=== PATIENT | male | born 1960 | race Caucasian/White ===

== ENCOUNTER 2017-06-04 19:09 | Emergency (ER) | payer BC ==
[~2017-06-04] VITALS: Ht 172.7 cm; Wt 86.0 kg
[2017-06-04 19:17] VITALS: TEMP 36.9; Ht 172.7 cm; Wt 86.0 kg
[2017-06-04] MEDS ORDERED: SODIUM CHLORIDE 0.9% 1000ML 1,000 ML IV SCH (19:44)
[2017-06-04] MEDS ORDERED: MULTI-VITAMIN INFUSION INJ 10 ML, THIAMINE HCL INJ 100 MG, FoLIC ACID INJ 1 MG in SODIU... IV ONE (20:00)
[2017-06-04 20:02] LABS: PARTIAL THROMBOPLASTIN RATIO 1.1; PROTHROMBIN TIME (PATIENT) 10.6 SECONDS (9.0-12.0)
[2017-06-04 20:06] LABS: BASO % 0.6 %; BASO ABS # 0.04 K/uL (0-0.2); COMPLETE YES; EOS % 2.6 %; IG% 1.2 %; LYMPH % 31.8 %; LYMPH ABS # 2.29 K/uL (1.2-3.4); MEAN CELL VOLUME 90.2 fL (80-100); MEAN CORPUSCULAR HEMOGLOBIN 31.5 pg (25-34); MEAN CORPUSCULAR HGB CONC 34.9 g/dl (32-36); MONO % 7.2 %; NEUT % 56.6 %; PLATELET COUNT 375 K/uL (130-400); RED BLOOD COUNT 4.99 M/uL (4.7-6.1); WHITE BLOOD COUNT 7.21 K/uL (4.8-10.8)
--- NOTE | 2017-06-04 20:06 | DIAGNOSTIC IMAGING REPORT ---
SINGLE VIEW CHEST CLINICAL HISTORY: Strokelike symptoms. FINDINGS: An AP, portable, upright chest radiograph is obtained. No prior studies are available for comparison at the time of dictation. The examination is degraded by portable technique, apical lordotic positioning, and patient rotation. The cardiomediastinal silhouette is unremarkable. Emphysematous change is suspected. There is biapical scarring, asymmetrically greater on the right than the left. Additional foci of nodularity are present at the right lung base. No airspace consolidation, large pleural effusion, or pneumothorax is seen. The skeletal structures appear osteopenic. The bony thorax is grossly intact. IMPRESSION: 1. There is no airspace consolidation, large pleural effusion, or pneumothorax. 2. There is asymmetric right apical scarring as compared to the left. Additional foci of nodularity are present at the right lung base. Although this may simple represent scarring and calcified granulomas, follow-up with a chest CT is recommended to exclude underlying pulmonary neoplasm. Electronically signed by: Connor Lo M.D. 06/04/2017 8:05 PM Dictated Date/Time: 06/04/2017 8:03 PM
[2017-06-04 20:09] LABS: ISTAT CREATININE 1.3 mg/dl (0.6-1.3); ISTAT IONIZED CALCIUM 1.12 mmol/l (1.12-1.32)
[2017-06-04 20:17] LABS: BLOOD UREA NITROGEN 8 mg/dl (7-18); BUN/CREATININE RATIO 8.9 (10-20); CALCIUM 8.5 mg/dl (8.5-10.1); CARBON DIOXIDE 23 mmol/L (21-32); CHLORIDE 105 mmol/L (98-107); CREATININE 0.92 mg/dl (0.60-1.40); GLUCOSE 94 mg/dl (70-99); POTASSIUM 3.8 mmol/L (3.5-5.1); SODIUM 138 mmol/L (136-145)
[2017-06-04 20:18] VITALS: O2SAT 92
[2017-06-04 20:22] LABS: CKMB/CK RATIO 1.1 (0-3.0)
--- NOTE | 2017-06-04 20:27 | DIAGNOSTIC IMAGING REPORT ---
CT SCAN OF THE BRAIN WITHOUT IV CONTRAST CLINICAL HISTORY: Strokelike symptoms. COMPARISON STUDY: No priors. TECHNIQUE: Unenhanced axial CT scan of the brain is performed from the vertex to the skull base. A dose lowering technique was utilized adhering to the principles of ALARA. CT DOSE: 537.48 mGy.cm FINDINGS: Brain parenchyma: There is minimal periventricular microangiopathic disease. There is no hemorrhage, mass effect, or evidence of acute territorial ischemia by CT criteria. Luna-white matter is preserved. No extra-axial fluid collection is seen. Ventricles, sulci, cisterns: Normal in configuration. Intracranial vasculature: There is minimal atherosclerotic calcification of the cavernous carotid arteries. Calvarium: Unremarkable. Sinuses and mastoids: The visualized paranasal sinuses are clear. The mastoid air cells are well pneumatized. Orbits: The bony orbits are grossly intact. IMPRESSION: There is no hemorrhage, mass effect, or evidence of acute territorial ischemia by CT criteria. Electronically signed by: Connor Lo M.D. 06/04/2017 8:26 PM Dictated Date/Time: 06/04/2017 8:23 PM
[2017-06-04] MEDS ORDERED: OPTIRAY 320 IV PRN (22:15)
--- NOTE | 2017-06-04 22:59 | DIAGNOSTIC IMAGING REPORT ---
CT ANGIOGRAM OF THE ABDOMEN AND PELVIS CLINICAL HISTORY: Atypical chest pain. Back pain. COMPARISON STUDY: No priors. TECHNIQUE: Following the IV administration of 94 cc of Optiray 320, CT angiogram of the abdomen and pelvis was performed from the lung bases the proximal femora. Images are reviewed in the axial, sagittal, and coronal planes. 3-D MIPS images are created and assessed. IV contrast was administered without complication. A dose lowering technique was utilized adhering to the principles of ALARA. CT DOSE: 606.04 mGy.cm FINDINGS: Lower chest: The heart is normal in size and without pericardial effusion. Emphysematous change is suggested. A 9 mm nodule in the right lower lobe as seen on image #7 appears hyperdense and is likely calcified. Additional calcified granulomas and noncalcified nodules are seen at the right lung base. Additional calcified granulomas are observed. No airspace consolidation or pleural effusion is identified. There is a small hiatal hernia. Liver: The contrast-enhanced liver is normal in size, contour, and attenuation. There is no intrahepatic or ductal dilatation. The main portal vein appears patent. Gallbladder: Unremarkable. Spleen: Normal in size and attenuation noting heterogeneous arterial phase enhancement. Pancreas: Unremarkable. Adrenal glands: Unremarkable. Kidneys: The contrast enhanced kidneys are normal in size and without hydronephrosis. The kidneys enhance symmetrically. Abdominal aorta and iliac arteries: There is moderate atherosclerotic calcification of the abdominal aorta which is normal in caliber. The abdominal aorta and iliac arteries are widely patent. No dissection is seen. Major branches of the abdominal aorta: The celiac trunk, superior mesenteric, and inferior mesenteric arteries are widely patent. Hepatic arterial anatomy is conventional. The splenic artery is patent. Single bilateral renal arteries are widely patent. Bowel: The small bowel and colon are normal in course and caliber. There is mild colonic diverticulosis without CT evidence of acute diverticulitis. The appendix is well-visualized and normal. Peritoneum: There is no intraperitoneal free air or abdominal ascites. There is a small fat-containing umbilical hernia. Lymphadenopathy: None. Pelvic viscera: The bladder is markedly distended otherwise normal in appearance. The prostate and seminal vesicles are normal as visualized. Skeletal structures: No destructive bony lesions are seen. IMPRESSION: 1. Unremarkable CT angiogram of the abdominal aorta. No aneurysm or dissection is seen. 2. Unremarkable CT angiogram of the major branches of the abdominal aorta. 3. No acute infectious or inflammatory findings are seen in the abdomen or pelvis. 4. The bladder is markedly distended but otherwise normal in appearance. 5. Calcified granulomas and noncalcified pulmonary nodules are seen at the right lung base. Follow-up with a nonemergent chest CT is recommended for further interrogation. 6. Mild colonic diverticulosis without CT evidence of acute diverticulitis. 7. Additional findings as above. Electronically signed by: Connor Lo M.D. 06/04/2017 10:58 PM Dictated Date/Time: 06/04/2017 10:50 PM
--- NOTE | 2017-06-04 23:18 | Progress Note ---
Internal Med Progress Note Date of Service: Jun 04, 2017. Provider Documentation: I was requested by Dr. Ridley to evaluate patient for potential admission. Patient expressed his desire to leave hospital AGAINST MEDICAL ADVICE. Patient counseled about potential risks of stroke, disability, or which may stem from his decision to forego admission. Patient understands above risks. Patient advised to return to the ER for recurrent symptoms and notify his PCP from [place] of events upon return. AMA form signed by patient. Vital Signs: Date Time Temp Pulse Resp B/P (MAP) Pulse Ox O2 Delivery O2 Flow Rate FiO2 06/04/17 23:30 87 18 155/108 95 06/04/17 21:15 81 18 132/92 90 Room Air 06/04/17 20:18 92 Room Air 06/04/17 20:18 85 18 150/95 92 Room Air 06/04/17 19:17 36.9 91 18 154/97 92 Room Air Lab Results: Results Past 24 Hours Test 06/04/17 19:15 06/04/17 19:59 06/04/17 20:01 Range/Units White Blood Count 7.21 4.8-10.8 K/uL Red Blood Count 4.99 4.7-6.1 M/uL Hemoglobin 15.7 14.0-18.0 g/dL Hematocrit 45.0 42-52 % Mean Corpuscular Volume 90.2 80-100 fL Mean Corpuscular Hemoglobin 31.5 25-34 pg Mean Corpuscular Hemoglobin Concent 34.9 32-36 g/dl Platelet Count 375 130-400 K/uL Mean Platelet Volume 9.0 7.4-10.4 fL Neutrophils (%) (Auto) 56.6 % Lymphocytes (%) (Auto) 31.8 % Monocytes (%) (Auto) 7.2 % Eosinophils (%) (Auto) 2.6 % Basophils (%) (Auto) 0.6 % Neutrophils # (Auto) 4.08 1.4-6.5 K/uL Lymphocytes # (Auto) 2.29 1.2-3.4 K/uL Monocytes # (Auto) 0.52 0.11-0.59 K/uL Eosinophils # (Auto) 0.19 0-0.5 K/uL Basophils # (Auto) 0.04 0-0.2 K/uL RDW Standard Deviation 40.2 36.4-46.3 fL RDW Coefficient of Variation 12.1 11.5-14.5 % Immature Granulocyte % (Auto) 1.2 % Immature Granulocyte # (Auto) 0.09 0.00-0.02 K/uL Prothrombin Time 10.6 9.0-12.0 SECONDS Prothromb Time International Ratio 1.0 0.9-1.1 Activated Partial Thromboplast Time 28.0 21.0-31.0 SECONDS Partial Thromboplastin Ratio 1.1 Sodium Level 138 136-145 mmol/L Potassium Level 3.8 3.5-5.1 mmol/L Chloride Level 105 98-107 mmol/L Carbon Dioxide Level 23 21-32 mmol/L Anion Gap 10.0 18.0 16-25 mmol/L Blood Urea Nitrogen 8 7-18 mg/dl Creatinine 0.92 0.60-1.40 mg/dl Est Creatinine Clear Calc Drug Dose 95.7 ml/min Estimated GFR () 107.4 Estimated GFR (Non- 92.6 BUN/Creatinine Ratio 8.9 10-20 Random Glucose 94 70-99 mg/dl Calcium Level 8.5 8.5-10.1 mg/dl Magnesium Level 2.2 1.8-2.4 mg/dl Total Creatine Kinase 176 39-308 U/L Creatine Kinase MB 1.9 0.5-3.6 ng/ml Creatine Kinase MB Ratio 1.1 0-3.0 Troponin I < 0.015 0-0.045 ng/ml Thyroid Stimulating Hormone (TSH) 0.655 0.300-4.500 uIu/ml Ethyl Alcohol mg/dL 292.5 0-3 mg/dl Bedside Hemoglobin 16.0 14.0-18.0 g/dl Bedside Hematocrit 47 42-52 % Bedside Sodium 138 135-144 mEq/L Bedside Potassium 3.9 3.3-5.0 mEq/L Bedside Chloride 103 101-112 mEq/L Bedside Total CO2 22 24-31 mEq/l Bedside Blood Urea Nitrogen 6 7-18 mg/dl Bedside Creatinine 1.3 0.6-1.3 mg/dl Bedside Glucose (other) 102 70-99 mg/dl Bedside Ionized Calcium (Suzette) 1.12 1.12-1.32 mmol/l Bedside Prothrombin Time INR 1.0 0.9-1.1 Bedside Glucose 117 70-99 mg/dl
[2017-06-04 23:21] LABS: MAGNESIUM 2.2 mg/dl (1.8-2.4); THYROID STIMULATING HORMONE 0.655 uIu/ml (0.300-4.500)
[2017-06-04 23:30] VITALS: BP 155/108; PULSE 87; O2SAT 95
[2017-06-05] MEDS ORDERED: IV FLUIDS COMPLETED PRN (02:15)
--- NOTE | 2017-06-05 22:39 | EMERGENCY ROOM VISIT NOTE ---
History Report prepared by Nilda: Nam Short Under the Supervision of: Dr. Addy Ridley M.D. First contact with patient: 19:22 Chief Complaint: OTHER COMPLAINT Stated Complaint: CHEST PAIN History of Present Illness The patient is a 57 year old male who presents to the Emergency Room by EMS with complaints of an episode of bilateral leg weakness occurring one hour ago. The patient estimates that the episode lasted for about 30 minutes. He states that he was walking up to the [employer] game when his legs "quit working". He admits that he has been drinking alcohol all day. The patient states that he normally drinks six beers per day. He states that he had around 12 beers today. Per friend, the patient began leaning to the side and walking in an unbalanced way. He states that the patient would veer off to the side, usually the left more than the right. He notes that the patient fell into bushes twice. The patient's friend states that after the patient was set down, he was unable to stand up with his own strength. The patient is unsure if his legs are still weak. He notes that he had a prostate biopsy 10 days ago. He denies any arm weakness, unilateral weakness, abdominal pain, numbness or chest pain. The patient states that he had some blurred vision yesterday. He states that he felt low back pain during the episode, but currently does not have any. His back pain was not worse on a particular side and did not radiate down his legs. He had no fecal or urinary incontinence. Source of History: patient, friend Onset: 1819 Position: leg (bilateral) Symptom Intensity: 30 minutes long Quality: other (weakness) Timing: other (episode) Associated Symptoms: + back pain (low during episode), No chest pain, No abdominal pain Note: The patient notes that he had blurred vision yesterday. He denies any arm weakness. Review of Systems See HPI for pertinent positives & negatives. A total of 10 systems reviewed and were otherwise negative. Past Medical & Surgical Medical Problems: (1) No Known Active Medical Problems (2) Transient limb paralysis Surgical Problems: (1) H/O prostate biopsy Family History No pertinent family history stated. Social History Smoking Status: Former Smoker Alcohol Use: heavy Current/Historical Medications No Active Prescriptions or Reported Meds Allergies Coded Allergies: Aspirin (Unverified Allergy, Unknown, ., 06/04/17) Penicillins (Unverified Allergy, Unknown, ., 06/04/17) Physical Exam Vital Signs Date Time Temp Pulse Resp B/P (MAP) Pulse Ox O2 Delivery O2 Flow Rate FiO2 06/04/17 23:30 87 18 155/108 95 06/04/17 21:15 81 18 132/92 90 Room Air 06/04/17 20:18 92 Room Air 06/04/17 20:18 85 18 150/95 92 Room Air 06/04/17 19:17 36.9 91 18 154/97 92 Room Air Physical Exam Constitutional: Vital signs reviewed. Eyes: Pupils are equal round reactive to light. Conjunctiva are noninjected. ENT: Pharynx is clear without erythema or exudate. Mucous membranes are moist. Neck supple without meningeal signs. Respiratory: Clear to auscultation bilaterally. Breath sounds are equal bilaterally. Cardiovascular: Regular rate and rhythm. No rubs or gallops. GI: Soft, nondistended and nontender. Bowel sounds are present. No pulsatile masses. Musculoskeletal: No peripheral edema. No lower extremity tenderness. Integumentary: No cyanosis. Neurological: The patient is awake and alert. Cranial nerves II-XII are intact. Motor is 5 out of 5 all extremities. Sensation is intact to light touch all extremities. Normal speech. No pronator drift. No limb ataxia. Unstable gait, listing toward the right side. DTRs are 2+ in the knees and ankles bilaterally. No saddle anesthesia. Psychiatric: Normal affect. Medical Decision & Procedures ER Provider Diagnostic Interpretation: Radiology results as stated below per my review and the radiologist's interpretation: CT SCAN OF THE BRAIN WITHOUT IV CONTRAST FINDINGS: Brain parenchyma: There is minimal periventricular microangiopathic disease. There is no hemorrhage, mass effect, or evidence of acute territorial ischemia by CT criteria. Luna-white matter is preserved. No extra-axial fluid collection is seen. Ventricles, sulci, cisterns: Normal in configuration. Intracranial vasculature: There is minimal atherosclerotic calcification of the cavernous carotid arteries. Calvarium: Unremarkable. Sinuses and mastoids: The visualized paranasal sinuses are clear. The mastoid air cells are well pneumatized. Orbits: The bony orbits are grossly intact. IMPRESSION: There is no hemorrhage, mass effect, or evidence of acute territorial ischemia by CT criteria. Electronically signed by: Connor Lo M.D. 06/04/2017 8:26 PM SINGLE VIEW CHEST FINDINGS: An AP, portable, upright chest radiograph is obtained. No prior studies are available for comparison at the time of dictation. The examination is degraded by portable technique, apical lordotic positioning, and patient rotation. The cardiomediastinal silhouette is unremarkable. Emphysematous change is suspected. There is biapical scarring, asymmetrically greater on the right than the left. Additional foci of nodularity are present at the right lung base. No airspace consolidation, large pleural effusion, or pneumothorax is seen. The skeletal structures appear osteopenic. The bony thorax is grossly intact. IMPRESSION: 1. There is no airspace consolidation, large pleural effusion, or pneumothorax. 2. There is asymmetric right apical scarring as compared to the left. Additional foci of nodularity are present at the right lung base. Although this may simple represent scarring and calcified granulomas, follow-up with a chest CT is recommended to exclude underlying pulmonary neoplasm. Electronically signed by: Connor Lo M.D. 06/04/2017 8:05 PM Laboratory Results 06/04/17 19:15 Red Blood Count 4.99, Mean Corpuscular Volume 90.2, Mean Corpuscular Hemoglobin 31.5, Mean Corpuscular Hemoglobin Concent 34.9, Mean Platelet Volume 9.0, Neutrophils (%) (Auto) 56.6, Lymphocytes (%) (Auto) 31.8, Monocytes (%) (Auto) 7.2, Eosinophils (%) (Auto) 2.6, Basophils (%) (Auto) 0.6, Neutrophils # (Auto) 4.08, Lymphocytes # (Auto) 2.29, Monocytes # (Auto) 0.52, Eosinophils # (Auto) 0.19, Basophils # (Auto) 0.04 06/04/17 19:15 Test 06/04/17 19:15 06/04/17 19:59 06/04/17 20:01 White Blood Count 7.21 K/uL (4.8-10.8) Red Blood Count 4.99 M/uL (4.7-6.1) Hemoglobin 15.7 g/dL (14.0-18.0) Hematocrit 45.0 % (42-52) Mean Corpuscular Volume 90.2 fL (80-100) Mean Corpuscular Hemoglobin 31.5 pg (25-34) Mean Corpuscular Hemoglobin Concent 34.9 g/dl (32-36) Platelet Count 375 K/uL (130-400) Mean Platelet Volume 9.0 fL (7.4-10.4) Neutrophils (%) (Auto) 56.6 % Lymphocytes (%) (Auto) 31.8 % Monocytes (%) (Auto) 7.2 % Eosinophils (%) (Auto) 2.6 % Basophils (%) (Auto) 0.6 % Neutrophils # (Auto) 4.08 K/uL (1.4-6.5) Lymphocytes # (Auto) 2.29 K/uL (1.2-3.4) Monocytes # (Auto) 0.52 K/uL (0.11-0.59) Eosinophils # (Auto) 0.19 K/uL (0-0.5) Basophils # (Auto) 0.04 K/uL (0-0.2) RDW Standard Deviation 40.2 fL (36.4-46.3) RDW Coefficient of Variation 12.1 % (11.5-14.5) Immature Granulocyte % (Auto) 1.2 % Immature Granulocyte # (Auto) 0.09 K/uL (0.00-0.02) Prothrombin Time 10.6 SECONDS (9.0-12.0) Prothromb Time International Ratio 1.0 (0.9-1.1) Activated Partial Thromboplast Time 28.0 SECONDS (21.0-31.0) Partial Thromboplastin Ratio 1.1 Est Creatinine Clear Calc Drug Dose 95.7 ml/min Estimated GFR () 107.4 Estimated GFR (Non- 92.6 BUN/Creatinine Ratio 8.9 (10-20) Calcium Level 8.5 mg/dl (8.5-10.1) Magnesium Level 2.2 mg/dl (1.8-2.4) Total Creatine Kinase 176 U/L (39-308) Creatine Kinase MB 1.9 ng/ml (0.5-3.6) Creatine Kinase MB Ratio 1.1 (0-3.0) Troponin I < 0.015 ng/ml (0-0.045) Thyroid Stimulating Hormone (TSH) 0.655 uIu/ml (0.300-4.500) Ethyl Alcohol mg/dL 292.5 mg/dl (0-3) Bedside Hemoglobin 16.0 g/dl (14.0-18.0) Bedside Hematocrit 47 % (42-52) Bedside Sodium 138 mEq/L (135-144) Bedside Potassium 3.9 mEq/L (3.3-5.0) Bedside Chloride 103 mEq/L (101-112) Bedside Total CO2 22 mEq/l (24-31) Anion Gap 18.0 mmol/L (16-25) Bedside Blood Urea Nitrogen 6 mg/dl (7-18) Bedside Creatinine 1.3 mg/dl (0.6-1.3) Bedside Glucose (other) 102 mg/dl (70-99) Bedside Ionized Calcium (Suzette) 1.12 mmol/l (1.12-1.32) Bedside Prothrombin Time INR 1.0 (0.9-1.1) Bedside Glucose 117 mg/dl (70-99) Laboratory results as reviewed by me. Medications Administered Medications (Trade) Dose Ordered Sig/Pedro Route Start Time Stop Time Status Last Admin Dose Admin Multivitamins 10 ml/Thiamine HCl 100 mg/Folic Acid 1 mg/Sodium Chloride 1,011.2 ml @ 500 mls/ hr Q2H2M ONCE IV 06/04/17 20:00 06/04/17 22:01 DC 06/04/17 20:25 500 MLS/HR ECG Indication: weakness Rate (beats per minute): 61 Rhythm: normal sinus Findings: no acute ischemic change, no ectopy ED Course 1923: The patient was evaluated in room C3. A complete history and physical exam was performed. 1935: I conducted a bedside abdominal ultrasound. Limited, but shows no evidence of aortic aneurysm. 1943: Ordered Sodium Chloride 1000 ml @ 50 mls/hr IV. 1999: Ordered Multivitamins 10 mL/Thiamine HCl 100 mg/Folic Acid 1 mg/Sodium Chloride 1011.2 ml @ 500 mls/hr IV. 2109: I discussed my concerns with the patient. He is very reluctant for further work up. After discussion he agreed to a CTA. 2149: Upon reevaluation, the patient is resting comfortably. I discussed tonight 's findings with him. He verbalized agreement of the treatment plan. The patient will be evaluated for further management. Medical Decision This is a 57-year-old male who presents with difficulty walking and weakness in his legs with some low back pain. Differential diagnosis includes alcohol intoxication, metabolic derangement, Wernicke-Korsakoff, intracranial hemorrhage , intracranial mass, CVA, spinal cord abnormality, lumbar radiculopathy, aortic dissection. I did perform a limited focused review of portions of the patient' s old chart on the electronic medical record. The patient has had no prior visits to this hospital. I did evaluate the patient as noted above. Patient is presenting with acute onset of weakness in both of his legs with difficulty walking. He was drinking throughout the day but states that he drinks beer on a regular basis and has a sixpack every day. He believes that the difficulty walking was not related to his alcohol use today. On examination he is neurologically intact without any cerebellar signs or lower motor neuron deficits. I did call a stroke alert. IV access was established. The patient was placed on a continuous weigh machine operator. I did order a stat CT of the head. I did review the images myself as well as the radiology report as described above. There is no evidence of acute intracranial process. I did perform a limited bedside ultrasound of the abdomen which did not show any evidence of AAA. The entire area was not seen due to bowel gas. I did order a CT angiogram of the abdomen and pelvis which did not show any evidence of aortic dissection. I did order and personally review the patient's 12-lead EKG and chest x-ray as described above. I did order and review the patient's blood work as noted in the electronic medical record. His alcohol level is 292 but the patient does not appear highly intoxicated. Certainly not to the point where he would have gait instability. He is able to reason with me and understands my concerns for his health. Initially he wanted to leave but I was able to convince him to stay for further evaluation. I did stress the case with the [place] neurologist on-call who evaluated the patient via video conferencing. She did not feel the patient likely had an acute CVA but could not completely rule out an acute cerebellar TIA. She did, however, feel that this was unlikely. I did discussed the test results with the patient. I did recommend hospitalization for further evaluation of his symptoms including MRI of the brain and spine. He understood my concerns and was willing to be hospitalized for further evaluation. I did discuss the case with the hospitalist and oil field caser. Medication Reconcilliation Current Medication List: was personally reviewed by me Blood Pressure Screening Patient's blood pressure: Elevated blood pressure Blood pressure disposition: Referred to PCP Consults Time Called: 2024 Consulting Physician: Dr. Espinoza [facility] Returned Call: [address] Espinoza of [facility]. We discussed the patient's case. Dr. Espinoza does not believe the patient currently needs TPA. 2100: I discussed the patient's case with Dr. Espinoza. She feels that the patient's symptoms are unlikely to be due to a stroke. She does not feel that TPA is warranted. She is concerned about potential lower motor neuronal problems. Additional Consults: Time Called: 2219 Consulted Physician: Dr. Emory Campos Returned Call: [phone] Additional Comments: I spoke with Dr. Cat of [facility]. We discussed the patient and his results. The patient will be further evaluated by [facility]. Impression Primary Impression: Ataxia Additional Impression: Low back pain Scribe Attestation The scribe's documentation has been prepared under my direct and personally reviewed by me in its entirety. I confirm that the note above accurately reflects all work, treatment, procedures, and medical decision making performed by me. Departure Information Dispostion Being Evaluated By Hospitalist Prescriptions No Active Prescriptions or Reported Meds Patient Instructions My [facility] Problem Qualifiers Additional Impression: Low back pain Chronicity: acute Back pain laterality: midline Sciatica presence: without sciatica Qualified Codes: M54.5 - Low back pain
== END 2017-06-04 23:31 | disposition home or self-care (01) ==
LOC: EDBD 19:09 → C.EDC 19:11 → ENRESERV 23:00 → CANRESERV 23:00 → C.EDC 23:31 → CANBEDREQ 06-05 02:45
DX: R27.0 Ataxia, unspecified (principal); M54.5 Low back pain; Z87.891 Personal history of nicotine dependence; Z88.0 Allergy status to penicillin; Z88.6 Allergy status to analgesic agent